=== PATIENT | male | born 1955 | race Caucasian/White ===

== ENCOUNTER 2020-07-28 12:11 | Outpatient (REF) | payer MEDICARE, OTHER, SELFPAY ==
[2020-07-28 12:46] LABS: Alanine Aminotransferase 39 U/L (0-40); Albumin Level 4.2 g/dL (3.5-5.0); Alkaline Phosphatase 68 U/L (39-117); Anion Gap 13 (12-20); Aspartate Amino Transferase 21 U/L (5-37); Bilirubin Total 0.6 mg/dL (0.0-1.0); Blood Urea Nitrogen 18 mg/dL (9-16); Calcium 9.2 mg/dL (8.4-10.2); Carbon Dioxide 23 mmol/L (22-29); Chloride 106 mmol/L (96-108); Estimated Glomerular Filt Rate 58; Glucose Random 99 mg/dL (60-115); Magnesium 1.9 mg/dL (1.6-2.6); Potassium 5.3 mmol/l (3.3-5.1); Sodium 137 mmol/L (135-145)
[2020-07-28 18:02] LABS: Uric Acid 6.1 mg/dL (3.4-7.0)
== END 2020-07-28 12:12 | disposition home or self-care (01) ==
LOC: HO.HVNA 12:11
PROVIDERS: Visit Provider Internal Medicine
DX: K91.2 Postsurgical malabsorption, not elsewhere classified (principal)
CPT/HCPCS: 80053; 83735; 84550

== ENCOUNTER 2020-08-04 12:19 | Outpatient (REF) | payer MEDICARE, OTHER, SELFPAY ==
[2020-08-04 13:47] LABS: Alanine Aminotransferase 29 U/L (0-40); Albumin Level 4.2 g/dL (3.5-5.0); Alkaline Phosphatase 68 U/L (39-117); Anion Gap 14 (12-20); Aspartate Amino Transferase 23 U/L (5-37); Bilirubin Total 0.3 mg/dL (0.0-1.0); Blood Urea Nitrogen 18 mg/dL (9-16); Calcium 9.1 mg/dL (8.4-10.2); Carbon Dioxide 24 mmol/L (22-29); Chloride 103 mmol/L (96-108); Estimated Glomerular Filt Rate 53; Glucose Random 87 mg/dL (60-115); Potassium 5.4 mmol/l (3.3-5.1); Sodium 136 mmol/L (135-145); Total Protein 6.9 g/dL (6.5-8.0); Uric Acid 6.3 mg/dL (3.4-7.0)
== END 2020-08-04 12:20 | disposition home or self-care (01) ==
LOC: HO.HVNA 12:19
PROVIDERS: Visit Provider Internal Medicine
DX: K91.2 Postsurgical malabsorption, not elsewhere classified (principal)
CPT/HCPCS: 80053; 84550

== ENCOUNTER 2020-08-10 14:01 | Outpatient (REF) | payer MEDICARE, OTHER, SELFPAY ==
[2020-08-10 15:23] LABS: Anion Gap 16 (12-20); Blood Urea Nitrogen 24 mg/dL (9-16); Calcium 9.1 mg/dL (8.4-10.2); Carbon Dioxide 23 mmol/L (22-29); Chloride 105 mmol/L (96-108); Estimated Glomerular Filt Rate 49; Phosphorus 3.7 mg/dL (2.7-4.5); Potassium 4.9 mmol/l (3.3-5.1); Sodium 139 mmol/L (135-145); Uric Acid 7.4 mg/dL (3.4-7.0)
== END 2020-08-10 14:02 | disposition home or self-care (01) ==
LOC: HO.LNP 14:01
PROVIDERS: Visit Provider Internal Medicine Nephrology
DX: K91.2 Postsurgical malabsorption, not elsewhere classified (principal); E86.0 Dehydration
CPT/HCPCS: 80051; 82310; 82565; 83735; 84100; 84520; 84550

== ENCOUNTER 2020-08-18 11:33 | Outpatient (REF) | payer MEDICARE, OTHER, SELFPAY ==
[2020-08-18 12:44] LABS: Anion Gap 16 (12-20); Blood Urea Nitrogen 18 mg/dL (9-16); Carbon Dioxide 20 mmol/L (22-29); Chloride 104 mmol/L (96-108); Estimated Glomerular Filt Rate 55; Magnesium 1.8 mg/dL (1.6-2.6); Phosphorus 3.5 mg/dL (2.7-4.5); Potassium 5.2 mmol/l (3.3-5.1); Sodium 135 mmol/L (135-145); Uric Acid 6.7 mg/dL (3.4-7.0)
== END 2020-08-18 11:34 | disposition home or self-care (01) ==
LOC: HO.LNP 11:33
PROVIDERS: Visit Provider Internal Medicine Nephrology
DX: K91.2 Postsurgical malabsorption, not elsewhere classified (principal)
CPT/HCPCS: 80051; 82565; 83735; 84100; 84520; 84550

== ENCOUNTER 2020-08-26 11:31 | Outpatient (REF) | payer MEDICARE, OTHER, SELFPAY ==
[2020-08-26 12:09] LABS: Alanine Aminotransferase 48 U/L (0-40); Albumin Level 4.2 g/dL (3.5-5.0); Alkaline Phosphatase 75 U/L (39-117); Anion Gap 14 (12-20); Aspartate Amino Transferase 21 U/L (5-37); Bilirubin Total 0.4 mg/dL (0.0-1.0); Blood Urea Nitrogen 24 mg/dL (9-16); Carbon Dioxide 24 mmol/L (22-29); Chloride 105 mmol/L (96-108); Estimated Glomerular Filt Rate 54; Glucose Random 95 mg/dL (60-115); Magnesium 1.9 mg/dL (1.6-2.6); Phosphorus 3.7 mg/dL (2.7-4.5); Potassium 4.9 mmol/l (3.3-5.1); Sodium 138 mmol/L (135-145); Total Protein 6.9 g/dL (6.5-8.0); Uric Acid 7.4 mg/dL (3.4-7.0)
== END 2020-08-26 11:32 | disposition home or self-care (01) ==
LOC: HO.HVNA 11:31
PROVIDERS: Visit Provider Internal Medicine Nephrology
DX: K91.2 Postsurgical malabsorption, not elsewhere classified (principal)
CPT/HCPCS: 80053; 83735; 84100; 84550

== ENCOUNTER 2020-09-01 12:10 | Outpatient (REF) | payer MEDICARE, OTHER, SELFPAY ==
[2020-09-01 12:47] LABS: Alanine Aminotransferase 42 U/L (0-40); Albumin Level 4.1 g/dL (3.5-5.0); Alkaline Phosphatase 72 U/L (39-117); Anion Gap 13 (12-20); Aspartate Amino Transferase 20 U/L (5-37); Bilirubin Total 0.5 mg/dL (0.0-1.0); Blood Urea Nitrogen 19 mg/dL (9-16); Calcium 9.1 mg/dL (8.4-10.2); Carbon Dioxide 22 mmol/L (22-29); Chloride 109 mmol/L (96-108); Estimated Glomerular Filt Rate 51; Glucose Random 135 mg/dL (60-115); Magnesium 1.8 mg/dL (1.6-2.6); Potassium 4.6 mmol/l (3.3-5.1); Sodium 139 mmol/L (135-145); Total Protein 6.9 g/dL (6.5-8.0); Uric Acid 6.9 mg/dL (3.4-7.0)
== END 2020-09-01 12:11 | disposition home or self-care (01) ==
LOC: HO.LNP 12:10
PROVIDERS: Visit Provider Internal Medicine Nephrology
DX: K91.2 Postsurgical malabsorption, not elsewhere classified (principal); E86.0 Dehydration
CPT/HCPCS: 80053; 83735; 84550

== ENCOUNTER 2020-09-08 11:41 | Outpatient (REF) | payer MEDICARE, OTHER, SELFPAY ==
[2020-09-08 12:40] LABS: Anion Gap 14 (12-20); Blood Urea Nitrogen 22 mg/dL (9-16); Calcium 8.7 mg/dL (8.4-10.2); Carbon Dioxide 23 mmol/L (22-29); Chloride 105 mmol/L (96-108); Estimated Glomerular Filt Rate 58; Magnesium 1.9 mg/dL (1.6-2.6); Phosphorus 3.2 mg/dL (2.7-4.5); Potassium 4.8 mmol/l (3.3-5.1); Sodium 137 mmol/L (135-145); Uric Acid 6.5 mg/dL (3.4-7.0)
== END 2020-09-08 11:42 | disposition home or self-care (01) ==
LOC: HO.LNP 11:41
PROVIDERS: Visit Provider Internal Medicine Nephrology
DX: K91.2 Postsurgical malabsorption, not elsewhere classified (principal)
CPT/HCPCS: 80051; 82310; 82565; 83735; 84100; 84520; 84550

== ENCOUNTER 2020-09-15 13:28 | Outpatient (REF) | payer MEDICARE, OTHER, SELFPAY ==
[2020-09-15 14:11] LABS: Anion Gap 11 (12-20); Blood Urea Nitrogen 12 mg/dL (9-16); Calcium 8.2 mg/dL (8.4-10.2); Carbon Dioxide 25 mmol/L (22-29); Chloride 106 mmol/L (96-108); Estimated Glomerular Filt Rate > 60; Magnesium 1.9 mg/dL (1.6-2.6); Phosphorus 2.6 mg/dL (2.7-4.5); Potassium 4.5 mmol/l (3.3-5.1); Sodium 137 mmol/L (135-145); Uric Acid 6.4 mg/dL (3.4-7.0)
== END 2020-09-15 13:29 | disposition home or self-care (01) ==
LOC: HO.HVNA 13:28
PROVIDERS: Visit Provider Internal Medicine Nephrology
DX: K91.2 Postsurgical malabsorption, not elsewhere classified (principal); E86.0 Dehydration
CPT/HCPCS: 80051; 82310; 82565; 83735; 84100; 84520; 84550

== ENCOUNTER 2020-09-22 11:11 | Outpatient (REF) | payer MEDICARE, OTHER, SELFPAY ==
[2020-09-22 11:55] LABS: Anion Gap 13 (12-20); Blood Urea Nitrogen 17 mg/dL (9-16); Calcium 8.8 mg/dL (8.4-10.2); Carbon Dioxide 24 mmol/L (22-29); Chloride 105 mmol/L (96-108); Estimated Glomerular Filt Rate 53; Phosphorus 4.1 mg/dL (2.7-4.5); Sodium 137 mmol/L (135-145); Uric Acid 6.2 mg/dL (3.4-7.0)
== END 2020-09-22 11:12 | disposition home or self-care (01) ==
LOC: HO.LNP 11:11
PROVIDERS: Visit Provider Internal Medicine Nephrology
DX: E86.0 Dehydration (principal); K91.2 Postsurgical malabsorption, not elsewhere classified
CPT/HCPCS: 80051; 82310; 82565; 83735; 84100; 84520; 84550

== ENCOUNTER 2020-09-29 11:25 | Outpatient (REF) | payer MEDICARE, OTHER, SELFPAY ==
[2020-09-29 12:48] LABS: Anion Gap 13 (12-20); Blood Urea Nitrogen 16 mg/dL (9-16); Calcium 8.8 mg/dL (8.4-10.2); Carbon Dioxide 25 mmol/L (22-29); Chloride 104 mmol/L (96-108); Estimated Glomerular Filt Rate > 60; Magnesium 1.9 mg/dL (1.6-2.6); Phosphorus 3.5 mg/dL (2.7-4.5); Potassium 4.4 mmol/l (3.3-5.1); Sodium 138 mmol/L (135-145); Uric Acid 6.2 mg/dL (3.4-7.0)
== END 2020-09-29 11:26 | disposition home or self-care (01) ==
LOC: HO.LNP 11:25
PROVIDERS: Visit Provider Internal Medicine Nephrology
DX: E86.0 Dehydration (principal); K91.2 Postsurgical malabsorption, not elsewhere classified
CPT/HCPCS: 80051; 82310; 82565; 83735; 84100; 84520; 84550

== ENCOUNTER 2020-10-06 11:43 | Outpatient (REF) | payer MEDICARE, OTHER, SELFPAY ==
[2020-10-06 12:25] LABS: Anion Gap 13 (12-20); Blood Urea Nitrogen 15 mg/dL (9-16); Calcium 8.7 mg/dL (8.4-10.2); Carbon Dioxide 26 mmol/L (22-29); Chloride 104 mmol/L (96-108); Estimated Glomerular Filt Rate > 60; Magnesium 1.8 mg/dL (1.6-2.6); Phosphorus 3.3 mg/dL (2.7-4.5); Potassium 4.6 mmol/l (3.3-5.1); Sodium 138 mmol/L (135-145)
[2020-10-06 14:23] LABS: Iron 50 mcg/dL (45-160); Percent Iron Saturation 18 % (15-50); Total Iron Binding Capacity 274 mcg/dL (228-428); Unsaturated Iron Binding 224 ug/dL
[2020-10-06 14:43] LABS: Ferritin 803 ng/mL (20-250)
== END 2020-10-06 11:44 | disposition home or self-care (01) ==
LOC: HO.LNP 11:43
PROVIDERS: Visit Provider Internal Medicine Nephrology
DX: D50.9 Iron deficiency anemia, unspecified (principal)
CPT/HCPCS: 80051; 82310; 82565; 82728; 83540; 83735; 84100; 84520; 84550

== ENCOUNTER 2020-10-07 10:05 | Outpatient (REF) | payer MEDICARE, OTHER, SELFPAY ==
[2020-10-07 10:12] LABS: MANUAL DIFF FLAG NO
[2020-10-07 10:14] LABS: Basophils Absolute Auto 0.1 X10*3/uL (0.0-0.2); Basophils Percent Auto 0.5 % (0-2); Eosinophils Absolute Auto 0.3 X10*3/uL (0.0-0.4); Eosinophils Percent Auto 2.3 % (0-4); Hematocrit 45.2 % (42-52); Hemoglobin 14.5 g/dl (14.0-18.0); Imm Gran Abs Auto 0.07 X10*3/uL (0.00-0.03); Imm Gran Pct Auto 0.5 % (0.0-0.4); Lymphocytes Absolute Auto 1.5 X10*3/uL (1.2-4.9); Lymphocytes Percent Auto 11.5 % (20-40); Mean Corpuscular HGB Conc 32.1 g/dl (31.0-36.0); Mean Corpuscular Volume 99.8 fL (80-98); Mean Platelet Volume 10.1 fL (9.4-12.4); Monocytes Absolute Auto 1.1 X10*3/uL (0.1-1.2); Monocytes Percent Auto 8.7 % (2-11); Neutrophils Absolute Auto 9.8 X10*3/uL (2.0-8.3); Neutrophils Percent Auto 76.5 % (45-73); Platelet Count 199 X10*3/uL (160-400); Red Blood Count 4.53 X10*6/uL (4.60-5.80); Red Cell Distribution Width 12.5 % (11.0-16.0); White Blood Count 12.8 X10*3/uL (4.8-10.8)
== END 2020-10-07 10:06 | disposition home or self-care (01) ==
LOC: HO.LNP 10:05
PROVIDERS: Visit Provider Internal Medicine
DX: D50.9 Iron deficiency anemia, unspecified (principal)
CPT/HCPCS: 85025

== ENCOUNTER 2020-10-13 11:42 | Outpatient (REF) | payer MEDICARE, OTHER, SELFPAY ==
[2020-10-13 12:58] LABS: Anion Gap 13 (12-20); Blood Urea Nitrogen 16 mg/dL (9-16); Calcium 8.8 mg/dL (8.4-10.2); Carbon Dioxide 26 mmol/L (22-29); Chloride 103 mmol/L (96-108); Estimated Glomerular Filt Rate > 60; Magnesium 1.9 mg/dL (1.6-2.6); Phosphorus 3.4 mg/dL (2.7-4.5); Potassium 4.5 mmol/l (3.3-5.1); Sodium 137 mmol/L (135-145); Uric Acid 6.6 mg/dL (3.4-7.0)
== END 2020-10-13 11:43 | disposition home or self-care (01) ==
LOC: HO.LNP 11:42
PROVIDERS: Visit Provider Internal Medicine Nephrology
DX: K91.2 Postsurgical malabsorption, not elsewhere classified (principal); E86.0 Dehydration
CPT/HCPCS: 80051; 82310; 82565; 83735; 84100; 84520; 84550

== ENCOUNTER 2020-10-20 10:48 | Outpatient (REF) | payer MEDICARE, OTHER, SELFPAY ==
[2020-10-20 12:08] LABS: Anion Gap 13 (12-20); Blood Urea Nitrogen 18 mg/dL (9-16); Carbon Dioxide 25 mmol/L (22-29); Chloride 105 mmol/L (96-108); Estimated Glomerular Filt Rate 60; Phosphorus 3.3 mg/dL (2.7-4.5); Potassium 4.4 mmol/l (3.3-5.1); Sodium 139 mmol/L (135-145); Uric Acid 6.9 mg/dL (3.4-7.0)
== END 2020-10-20 10:49 | disposition home or self-care (01) ==
LOC: HO.LNP 10:48
PROVIDERS: Visit Provider Internal Medicine Nephrology
DX: K91.2 Postsurgical malabsorption, not elsewhere classified (principal); E86.0 Dehydration
CPT/HCPCS: 80051; 82310; 82565; 83735; 84100; 84520; 84550

== ENCOUNTER → 2024-05-28 13:13 | Outpatient (RCR) | payer MEDICARE, OTHER, SELFPAY ==
--- NOTE | 2020-09-20 13:29 | MHC.HEMONCMA ---
Raj from [facility] called and would like to speak to Fatou about an order for port flushes, he states he can be reached at [phone]. I will let Fatou know.
--- NOTE | 2020-10-04 12:00 | MHC.HEMONC ---
Pt had televisit scheduled for today with Dr Mckeon. Call made to pt with no answer. Message left
--- NOTE | 2020-10-04 13:01 | P.PNHO_ITS ---
[facility] Telehealth - Telehealth Location of Provider rendering services: Office Location of Patient: Home Patient Identification confirmed using: Name, : Yes Telehealth Method: Telephone Patient verbally consented to treatment: Yes Patient verbally consented to billing insurance company: Yes Patient informed of any privacy concerns related to visit: Yes Medical Summary - Medical Summary Date of Service: 10/04/20 Chief complaint: Follow-up Medical Summary: Diagnosis: Iron deficiency anemia Received Ferrlecit infusions weekly along with electrolytes for about 6 months in . Medical and Surgical History C diff colitis complicated by sepsis, intestinal resection, multiple surgeries and ileostomy Neck/back surgery x2 Hypomagnesemia Short gut syndrome Hypertension Hypercholesterolemia CAD, stents placement in 2005 COPD Ventral hernia Hernia surgery Tonsillectomy Interval History Interval history: This is scheduled follow-up for patient. He was consented for tele visit based on COVID-19 pandemic guidelines. He is doing very well and reports no symptoms such as exertional chest pain, shortness of breath, fever, chills, fatigue or cough. He says that he no longer has electrolyte infusion it is and he has weekly labs ordered by his career services coordinator. He has had no interim medical problems. Review of Systems - Constitutional Reports as per HPI, Reports no additional constitutional complaints - Cardiovascular Reports no additional cardiovascular complaints - Respiratory Reports no additional respiratory complaints Home Medications and Allergies Home Medications Medication Instructions Recorded Confirmed Type Nitrostat 1 tab SUBLINGUAL Q5W PRN 10/04/20 10/04/20 History Wellbutrin XL 10/04/20 History aspirin 81 mg PO DAILY 10/04/20 10/04/20 History atorvastatin 40 mg PO DAILY 10/04/20 10/04/20 History budesonide-formoterol [Symbicort] 2 puff INHALATION BID 10/04/20 10/04/20 History escitalopram oxalate 10 mg PO DAILY 10/04/20 10/04/20 History fludrocortisone 0.1 mg PO DAILY 10/04/20 10/04/20 History isosorbide mononitrate 10/04/20 10/04/20 History loperamide 2 mg PO QID 10/04/20 10/04/20 History omeprazole 20 mg PO DAILY 10/04/20 10/04/20 History simethicone 40 mg PO DAILY 10/04/20 10/04/20 History sodium polystyrene sulfonate 15 g PO DAILY 10/04/20 10/04/20 History tamsulosin 0.4 mg PO DAILY 10/04/20 10/04/20 History teduglutide 3.075 mg SUBCUT DAILY 10/04/20 10/04/20 History Allergies Allergy/AdvReac Type Severity Reaction Status Date / Time cyclobenzaprine Allergy Unknown UNKNOWN Unverified 06/16/20 19:47 [From FLEXERIL] diclofenac [From CATAFLAM] Allergy Unknown UNKNOWN Unverified 06/16/20 19:47 methylphenidate Allergy Unknown UNKNOWN Unverified 06/16/20 19:47 [From CONCERTA] tamsulosin [Flomax] Allergy Unknown Verified 05/10/20 00:00 dextran 40 [DEXTRAN 40] AdvReac Intermediate sob Unverified 06/16/20 19:47 elevated heart rate and blood pressure Flexeril Allergy Unknown Uncoded 05/10/20 00:00 Progress Note: A/P (1) Iron deficiency anemia Status: Chronic Assessment and plan: 1. This is a pleasant 64-year-old male with iron deficiency anemia as well as anemia of chronic disease. He has had multiple bowel surgeries in the last 2 years for complicated Clostridium difficile infection. He was diagnosed with short-gut syndrome. He has been on parenteral iron therapy for iron deficiency. Last blood work in May showed resolution of anemia as well as iron deficiency. He has not received any further iron infusion. Repeat CBC with iron studies at this time. Follow-up in 3 months. - Time Spent With Patient Total time spent is greater than 50% in coordination of care (as documented) at patient's floor/unit and/or counseling patient: 15 - 24 minutes
--- NOTE | 2020-10-04 14:56 | MHC.HEMONC ---
Televisit with Dr Mckeon done as scheduled. Pt states has been feeling very well. No c/o discomfort at this time. Will return for follow up in 3 months
--- NOTE | 2020-10-04 17:35 | MHC.HEMONC ---
Labs for home draw faxed to [facility] lab.
--- NOTE | 2020-10-06 13:54 | MHC.HEMONC ---
Order for iron studies and CBC re-faxed to [facility] who does his routine lab testing. Pt aware.
[2021-01-06 12:51] VITALS: BP 187/93; PULSE 66; RESP 12; TEMP 36.7; O2SAT 98; BMI 22.0
[2021-01-06 13:34] LABS: MANUAL DIFF FLAG NO
[2021-01-06 13:38] LABS: Basophils Absolute Auto 0.1 X10*3/uL (0.0-0.2); Basophils Percent Auto 0.7 % (0-2); Eosinophils Absolute Auto 0.2 X10*3/uL (0.0-0.4); Eosinophils Percent Auto 2.4 % (0-4); Hematocrit 44.2 % (42-52); Hemoglobin 14.2 g/dl (14.0-18.0); Imm Gran Abs Auto 0.06 X10*3/uL (0.00-0.03); Imm Gran Pct Auto 0.7 % (0.0-0.4); Lymphocytes Absolute Auto 1.5 X10*3/uL (1.2-4.9); Lymphocytes Percent Auto 17.6 % (20-40); Mean Corpuscular HGB Conc 32.1 g/dl (31.0-36.0); Mean Corpuscular Volume 96.5 fL (80-98); Mean Platelet Volume 9.9 fL (9.4-12.4); Monocytes Absolute Auto 0.9 X10*3/uL (0.1-1.2); Monocytes Percent Auto 10.7 % (2-11); Neutrophils Absolute Auto 5.6 X10*3/uL (2.0-8.3); Neutrophils Percent Auto 67.9 % (45-73); Platelet Count 191 X10*3/uL (160-400); Red Blood Count 4.58 X10*6/uL (4.60-5.80); Red Cell Distribution Width 13.5 % (11.0-16.0); White Blood Count 8.2 X10*3/uL (4.8-10.8)
--- NOTE | 2021-01-06 14:03 | P.PNHO_ITS ---
Medical Summary - Medical Summary Date of Service: 01/06/21 Chief complaint: Follow-up Medical Summary: Diagnosis: Iron deficiency anemia Received Ferrlecit infusions weekly along with electrolytes for about 6 months in . Medical and Surgical History C diff colitis complicated by sepsis, intestinal resection, multiple surgeries and ileostomy Neck/back surgery x2 Hypomagnesemia Short gut syndrome Hypertension Hypercholesterolemia CAD, stents placement in 2005 COPD Ventral hernia Hernia surgery Tonsillectomy Interval History Interval history: Patient is here in follow-up. He is doing very well. He no longer gets infusions of iron order electrolytes. He is planning to go back to [place]. He has received COVID-19 vaccine. Overall he feels his health has improved since a year ago. Review of Systems - Constitutional Reports as per HPI, Reports no additional constitutional complaints [facility] Medical History: Medical History (Last Updated 10/04/20 @ 11:33 by Lorrie Kidd, SUSAN) C. difficile colitis CAD (coronary artery disease) COPD (chronic obstructive pulmonary disease) Hypercholesteremia Hypertension Hypomagnesemia Short gut syndrome Ventral hernia Family History: Family History (Last Updated 10/04/20 @ 11:35 by Lorrie Kidd, SUSAN) Mother Heart problem Diabetes Father Electrocution Surgical History: Surgical History (Last Updated 10/04/20 @ 11:33 by Lorrie Kidd RN) History of back surgery History of hernia surgery Hx of neck surgery Hx of tonsillectomy Social History: Social History (Last Updated 01/06/21 @ 12:54 by Taina Castillo) Alcohol History: Alcohol intake: former Alcohol History Details: Alcohol intake frequency: does not drink Tobacco History: Smoking Status: Current every day smoker Packs Per Day: 0.5 Cigarettes Per Day: 10.0 Substance Use History: Use of substances other than those prescribed or required for medical reasons : No Smoking status: Current every day smoker Oncology Screenings - ECOG Performance Status ECOG Performance Status: 1 Home Medications and Allergies Home Medications Medication Instructions Recorded Confirmed Type Nitrostat 1 tab SUBLINGUAL Q5W PRN 10/04/20 10/04/20 History Wellbutrin XL 300 mg PO DAILY 10/04/20 01/06/21 History aspirin 81 mg PO DAILY 10/04/20 10/04/20 History atorvastatin 40 mg PO DAILY 10/04/20 10/04/20 History budesonide-formoterol [Symbicort] 2 puff INHALATION BID 10/04/20 10/04/20 History escitalopram oxalate 10 mg PO DAILY 10/04/20 10/04/20 History fludrocortisone 0.1 mg PO DAILY 10/04/20 10/04/20 History isosorbide mononitrate 60 mg PO DAILY 10/04/20 01/06/21 History loperamide 2 mg PO QID 10/04/20 10/04/20 History omeprazole 20 mg PO DAILY 10/04/20 10/04/20 History simethicone 40 mg PO DAILY 10/04/20 10/04/20 History sodium polystyrene sulfonate 15 g PO DAILY 10/04/20 10/04/20 History teduglutide 3.075 mg SUBCUT DAILY 10/04/20 10/04/20 History Allergies Allergy/AdvReac Type Severity Reaction Status Date / Time cyclobenzaprine Allergy Unknown UNKNOWN Unverified 06/16/20 19:47 [From FLEXERIL] diclofenac [From CATAFLAM] Allergy Unknown UNKNOWN Unverified 06/16/20 19:47 methylphenidate Allergy Unknown UNKNOWN Unverified 06/16/20 19:47 [From CONCERTA] tamsulosin [Flomax] Allergy Unknown Verified 05/10/20 00:00 dextran 40 [DEXTRAN 40] AdvReac Intermediate sob Unverified 06/16/20 19:47 elevated heart rate and blood pressure Flexeril Allergy Unknown Uncoded 05/10/20 00:00 Exam Vital signs: Vital Signs Temp 98.0 F 01/06/21 12:51 Pulse 66 01/06/21 12:51 Resp 12 01/06/21 12:51 BP 187/93 H 01/06/21 12:51 Pulse Ox 98 01/06/21 12:51 Intake & Output 01/05/21 01/06/21 01/06/21 18:59 06:59 18:59 Other: Weight 63.9 kg [place] Weight in Grams 30602 Weight 63.9 kg Body Mass Index 22.0 Progress Note: A/P (1) Iron deficiency anemia Status: Chronic Assessment and plan: 1. This is a pleasant 65-year-old male with iron deficiency anemia as well as anemia of chronic disease. He has had multiple bowel surgeries in the last 2 years for complicated Clostridium difficile infection, he has colostomy. He was diagnosed with short-gut syndrome. He has been on parenteral iron therapy for iron deficiency until May of 2020. Anemia as well as iron deficiency has r esolved. He will now follow up with his doctors in [place]. - Time Spent With Patient Total time spent is greater than 50% in coordination of care (as documented) at patient's floor/unit and/or counseling patient: less than 15 minutes
[2021-01-06 14:08] LABS: Iron 52 mcg/dL (45-160); Percent Iron Saturation 20 % (15-50); Total Iron Binding Capacity 264 mcg/dL (228-428); Unsaturated Iron Binding 212 ug/dL
--- NOTE | 2021-01-06 15:10 | MHC.HEMONCMA ---
Patient came in for a follow up today, states he is doing well. Patient states he is moving to [place] so this will be his last visit here. Clinical summary was reviewed and updated. Patient had labs, no follow up booked.
== END | disposition home or self-care (01) ==
LOC: HO.ONC 10-04 14:11
PROVIDERS: PCP Nurse Practitioner Family; Visit Provider Internal Medicine
DX: Z86.2 Personal history of diseases of the blood and blood-forming organs and certain disorders involving the immune mechanism (principal); Z93.3 Colostomy status
CPT/HCPCS: 83540; 85025; 99212; 99213; Q3014